=== PATIENT | male | born 1940 | race Caucasian/White ===

== ENCOUNTER 2018-02-15 08:45 | Inpatient (IN) | payer MEDICARE ==
[2018-02-11 11:06] LABS: Urine Bacteria NONE SEEN /hpf (None Seen); Urine Blood Negative /uL (Negative); Urine Mucus FEW (None Seen); Urine Specific Gravity 1.023 (1.001-1.035); Urine WBC <1 /hpf (0 - 3)
[2018-02-11 11:09] LABS: Basophils # (auto) 0 uL; Basophils % (auto) 0.7 % (0.0-2.0); Eosinophils # (auto) 0.2 uL; Eosinophils % (auto) 3.7 % (0.0-7.0); Hematocrit 46.4 % (41.0-53.0); Hemoglobin 16.4 g/dL (13.5-17.5); Lymphocytes % (auto) 19.8 % (10.0-50.0); Mean Corpuscular Hemoglobin 31.2 pg (28.0-32.0); Mean Corpuscular Hgb Conc. 35.3 g/dL (32.0-36.0); Mean Corpuscular Volume 88.2 fL (80.0-100.0); Monocytes # (auto) 0.4 uL; Monocytes % (auto) 7.8 % (0.0-12.0); Neutrophils # (auto) 3.6 uL; Nucleated Red Blood Cells % 0.6 %; Platelet Count (auto) 212 10^3/uL (140-450); Red Blood Cells 5.27 10^6/uL (4.5-5.90); Red Cell Distribution Width 13.7 % (11.8-14.3); White Blood Cell 5.3 10^3/uL (4.4-10.8)
[2018-02-11 11:16] LABS: INR 1.13 (0.9-1.15); Partial Thromboplastin Time 36.9 sec (23.78-33.04)
[2018-02-11 11:28] LABS: Albumin 3.7 g/dL (3.4-5.0); BUN/Creatinine Ratio 16.7; Bilirubin, Total 1.2 mg/dL (0.2-1.0); Calcium 8.7 mg/dL (8.5-10.1); Total Protein 7.5 g/dL (6.4-8.2)
[~2018-02-15] VITALS: Ht 188 cm; Wt 105.1 kg
[~2018-02-15 08:45] MED LIST: DRON400T PO; RIVA10TA PO; SIMV-13 PO
[2018-02-15] MEDS ORDERED: LIDOCAINE W/ EPINEPHRINE 2% INJ 20ML VIAL ONE (09:22)
[2018-02-15] MEDS ORDERED: BUPIVACAINE HCL 50 ML ONE (09:22)
[2018-02-15] MEDS ORDERED: MIDAZOLAM HCL 1MG/1ML-2 ML VIAL ONE ×3 (09:41→12:03)
[2018-02-15] MEDS ORDERED: ceFAZolin 1GM/50ML 50 ML IV ONE ×2 (09:45→10:53)
[2018-02-15] MEDS ORDERED: MEPERIDINE HCL (50 MG/ML) 1 ML VIAL ONE (10:30)
[2018-02-15] MEDS ORDERED: fentaNYL CITRATE 100 MCG/2 ML VL ONE (10:30)
[2018-02-15] MEDS ORDERED: DEXAMETHASONE SOD PHOS 10MG/1ML VIAL INJ ONE (10:33)
[2018-02-15] MEDS ORDERED: PROPOFOL 10 MG/ML 20 ML IV ONE (10:33)
[2018-02-15] MEDS ORDERED: TETRACAINE 1% INJ 2 ML VIAL IJ ONE (11:00)
[2018-02-15] MEDS ORDERED: PHENYLEPHRINE HCL 10 MG/ML VL IV ONE (11:01)
[2018-02-15] MEDS ORDERED: diphenhdrAMINE HCL 50 MG/1 ML VL ONE (11:34)
[2018-02-15] MEDS ORDERED: ePHEDrine SULFATE 50 MG/ML AMP IV PRN (13:45)
[2018-02-15] MEDS ORDERED: LABETALOL HCL 5 MG/ML 4ML SYRINGE IV PRN (13:45)
[2018-02-15] MEDS ORDERED: HYDROmorphone HCL 2 MG/ML VL IV PRN ×2 (13:45→14:45)
[2018-02-15] MEDS ORDERED: MORPHINE SULF INJ 2 MG/ML SYRINGE 1ML IV PRN (13:45)
[2018-02-15] MEDS ORDERED: ONDANSETRON HCL 4 MG/2 ML VIAL IV ONE (13:45)
[2018-02-15] MEDS ORDERED: KETOROLAC TROMETH 30 MG/ML 1ML VIAL IV ONE (13:45)
[2018-02-15] MEDS ORDERED: MORPHINE SULF INJ 2 MG/ML SYRINGE 1ML IV ONE (14:00)
[2018-02-15] MEDS ORDERED: fentaNYL CITRATE 100 MCG/2 ML VL IV ONE (14:00)
[2018-02-15 14:30] VITALS: BP 120/70
[2018-02-15] MEDS ORDERED: ONDANSETRON HCL 4 MG/2 ML VIAL IV PRN (14:45)
[2018-02-15 17:00] VITALS: BP 84/44
[2018-02-15] MEDS: ceFAZolin 1GM/50ML 50 ML IV SCH ×2 (18:51→20:33)
[2018-02-15] MEDS: LACTATED RINGER'S 1,000 ML IV SCH (18:51)
[2018-02-15] MEDS: HYDROcodone-ACET 10/325MG TAB PO PRN (20:32)
[2018-02-15] MEDS: DOCUSATE SOD 100 MG CAP PO SCH (20:33)
[2018-02-15] MEDS: SODIUM CHLOR 0.9% PF (SALINE LOCK) 10ML VIAL/SYR IV SCH (20:33)
[2018-02-15] MEDS: ACETAMINOPHEN 325 MG TAB PO PRN (20:33)
[2018-02-15 22:00] VITALS: BP 114/53
[2018-02-16] MEDS: HYDROcodone-ACET 10/325MG TAB PO PRN ×5 (01:51→20:21)
[2018-02-16] MEDS: SODIUM CHLOR 0.9% PF (SALINE LOCK) 10ML VIAL/SYR IV SCH ×3 (04:26→22:00)
[2018-02-16] MEDS: ceFAZolin 1GM/50ML 50 ML IV SCH (04:27)
[2018-02-16 05:00] VITALS: BP 115/68
[2018-02-16 06:30] LABS: Hematocrit 38.3 % (41.0-53.0); Hemoglobin 13.7 g/dL (13.5-17.5)
[2018-02-16] MEDS: ACETAMINOPHEN 325 MG TAB PO PRN ×2 (06:51→20:21)
[2018-02-16 08:00] VITALS: BP 107/61
[2018-02-16 09:00] VITALS: BP 107/61
[2018-02-16] MEDS: DOCUSATE SOD 100 MG CAP PO SCH ×2 (09:28→22:01)
[2018-02-16] MEDS ORDERED: ENOXAPARIN SOD 40 MG/0.4 ML SYRINGE SC SCH (10:00)
[2018-02-16] MEDS: LACTATED RINGER'S 1,000 ML IV SCH (10:40)
[2018-02-16] MEDS ORDERED: HYDROmorphone HCL 2 MG/ML VL IV PRN (12:00)
[2018-02-16] MEDS ORDERED: DRONEDARONE HCL 400 MG TAB PO ONE (12:00)
[2018-02-16 12:58] VITALS: BP 110/60
[2018-02-16 17:00] VITALS: BP 110/85
[2018-02-16] MEDS ORDERED: METF-370 PO (18:30)
[2018-02-16] MEDS ORDERED: BRIN1SUS LEFTEYE (18:32)
[2018-02-16] MEDS: RIVAROXABAN 20 MG TAB PO SCH (18:51)
[2018-02-16] MEDS: ATORVASTATIN 20 MG TAB PO SCH (22:01)
[2018-02-16] MEDS: DRONEDARONE HCL 400 MG TAB PO SCH (22:01)
[2018-02-16] MEDS: TEMAZEPAM 15 MG CAP PO PRN (22:01)
[2018-02-16 22:48] VITALS: BP 131/67
[2018-02-17] MEDS: HYDROcodone-ACET 10/325MG TAB PO PRN ×6 (01:46→18:12)
[2018-02-17 05:16] VITALS: BP 126/65
[2018-02-17] MEDS: SODIUM CHLOR 0.9% PF (SALINE LOCK) 10ML VIAL/SYR IV SCH ×3 (06:33→20:22)
[2018-02-17] MEDS: ACETAMINOPHEN 325 MG TAB PO PRN ×2 (06:34→21:32)
[2018-02-17 08:35] LABS: Hematocrit 34.8 % (41.0-53.0); Hemoglobin 12.2 g/dL (13.5-17.5)
[2018-02-17 09:00] VITALS: BP 123/68
[2018-02-17] MEDS: DRONEDARONE HCL 400 MG TAB PO SCH ×2 (10:00→21:32)
[2018-02-17] MEDS: DOCUSATE SOD 100 MG CAP PO SCH ×2 (10:01→21:32)
[2018-02-17 10:14] LABS: Hepatitis B Surface Antibody Negative
[2018-02-17] MEDS: MORPHINE SULF INJ 2 MG/ML SYRINGE 1ML IV PRN ×3 (12:30→20:21)
[2018-02-17 13:00] VITALS: BP 124/72
[2018-02-17] MEDS ORDERED: ceFAZolin 1GM/50ML 50 ML IV ONE (13:01)
[2018-02-17 17:00] VITALS: BP 119/70
[2018-02-17] MEDS: RIVAROXABAN 20 MG TAB PO SCH (17:39)
[2018-02-17 21:29] VITALS: BP 134/59
[2018-02-17] MEDS: TEMAZEPAM 15 MG CAP PO PRN (21:32)
[2018-02-17] MEDS: ATORVASTATIN 20 MG TAB PO SCH (21:32)
[2018-02-18 04:49] VITALS: BP 143/65
[2018-02-18] MEDS: SODIUM CHLOR 0.9% PF (SALINE LOCK) 10ML VIAL/SYR IV SCH ×3 (05:48→21:25)
[2018-02-18] MEDS: HYDROcodone-ACET 10/325MG TAB PO PRN ×4 (05:52→17:50)
[2018-02-18 07:09] LABS: Hematocrit 32.5 % (41.0-53.0); Hemoglobin 11.5 g/dL (13.5-17.5)
[2018-02-18] MEDS: MORPHINE SULF INJ 2 MG/ML SYRINGE 1ML IV PRN ×5 (07:32→21:25)
[2018-02-18 08:58] VITALS: BP 126/62
[2018-02-18] MEDS: DRONEDARONE HCL 400 MG TAB PO SCH ×2 (09:31→21:24)
[2018-02-18] MEDS: DOCUSATE SOD 100 MG CAP PO SCH ×2 (09:32→21:24)
[2018-02-18 13:00] VITALS: BP 130/60
[2018-02-18 17:00] VITALS: BP 117/54
[2018-02-18] MEDS: RIVAROXABAN 20 MG TAB PO SCH (18:06)
[2018-02-18] MEDS: TEMAZEPAM 15 MG CAP PO PRN (21:24)
[2018-02-18] MEDS: ATORVASTATIN 20 MG TAB PO SCH (21:25)
[2018-02-18] MEDS: ACETAMINOPHEN 325 MG TAB PO PRN (21:25)
[2018-02-18 21:50] VITALS: BP 129/57
[2018-02-19] MEDS: HYDROcodone-ACET 10/325MG TAB PO PRN ×4 (01:51→14:34)
[2018-02-19 04:51] VITALS: BP 126/58
[2018-02-19] MEDS: SODIUM CHLOR 0.9% PF (SALINE LOCK) 10ML VIAL/SYR IV SCH ×2 (05:21→12:53)
[2018-02-19 06:02] LABS: Hematocrit 30.5 % (41.0-53.0)
[2018-02-19 06:21] LABS: BUN/Creatinine Ratio 20.3; Calcium 7.7 mg/dL (8.5-10.1); Magnesium 2.4 mg/dL (1.6-2.6); Potassium 4.1 mmol/L (3.5-5.1)
[2018-02-19 07:41] VITALS: BP 124/68
[2018-02-19] MEDS: DOCUSATE SOD 100 MG CAP PO SCH (08:48)
[2018-02-19] MEDS: DRONEDARONE HCL 400 MG TAB PO SCH (08:48)
[2018-02-19] MEDS: MORPHINE SULF INJ 2 MG/ML SYRINGE 1ML IV PRN ×2 (10:01→12:50)
[2018-02-19 12:14] VITALS: BP 109/57
[2018-02-21 17:08] LABS: Hepatitis B Surface Antigen Negative (Negative)
== END 2018-02-19 13:00 | DRG 470 ==
LOC: SUR 08:45 → TELE-EAST 08:46
PROVIDERS: ADMIT Orthopaedic Surgery; ATTEND Internal Medicine
PROC: 0MBN0ZZ Excision of Right Knee Bursa and Ligament, Open Approach (ICD-10-PCS; 2018-02-15)
PROC: 0KNQ0ZZ Release Right Upper Leg Muscle, Open Approach (ICD-10-PCS; 2018-02-15)
PROC: 0YBF0ZZ Excision of Right Knee Region, Open Approach (ICD-10-PCS; 2018-02-15)
PROC: 0SRC0J9 Replacement of Right Knee Joint with Synthetic Substitute, Cemented, Open Approach (ICD-10-PCS; principal; 2018-02-15 11:05)
DX: M17.11 Unilateral primary osteoarthritis, right knee (principal); D62 Acute posthemorrhagic anemia; M70.41 Prepatellar bursitis, right knee; E66.9 Obesity, unspecified; E78.5 Hyperlipidemia, unspecified; R22.41 Localized swelling, mass and lump, right lower limb; I48.91 Unspecified atrial fibrillation; Z79.01 Long term (current) use of anticoagulants; Z68.29 Body mass index [BMI] 29.0-29.9, adult; Z88.5 Allergy status to narcotic agent; Z88.7 Allergy status to serum and vaccine
CPT/HCPCS: 36415; 73562; 80048; 80053; 81001; 83036; 83735; 85014; 85018; 85025; 85610; 85730; 86703; 86706; 86803; 86850; 86900; 86901; 87081; 87340; 97110; 97116; J0690; J1100; J1885; J2250; J2704; J3490